=== PATIENT | female | born 1935 | race Caucasian/White ===

== ENCOUNTER 2016-05-20 11:00 | Observation (INO) | payer MEDICARE, OTHER ==
[2016-05-20 11:49] LABS: Hemoglobin 12.4 gm/dL (12.5-16.0); Mean Cell Volume 90.9 fl (78-100); Mean Corpuscular Hemoglobin 29.7 pg (27-31); Mean Corpuscular Hgb Conc 32.6 g/dl (32-36); Mean Platelet Volume 9.9 fl (6.0-9.5); Platelet Count 292 K/mm3 (150-450); Red Blood Count 4.18 M/mm3 (4.2-5.4); Red Cell Distribution Width 13.1 % (11.5-14.0); White Blood Count 11.1 K/mm3 (4.0-10.5)
[2016-05-20 11:52] LABS: Total Cells Counted 100
[2016-05-20 11:57] LABS: Anion Gap 14.6 mmol/L (6.8-13.8); BUN/Creatinine Ratio 9.6 (9.0-21.6); Calcium * 8.7 mg/dL (7.9-10.9); Carbon Dioxide 28.8 mmol/L (24-32.6); Estimated Creat Clear 28.4; Potassium 3.4 mmol/L (3.4-4.6)
--- NOTE | 2016-05-20 12:09 | ERNOTE ---
Medical Problem HPI - Narrative Date of Service: 05/20/16 - General Chief Complaint: Nausea/Vomiting Time Seen by Provider: 05/20/16 11:41 Source: patient Exam Limitations: no limitations - Immun/Allergies/Home Medications Immunizations: IMMUNIZATION HX Immunizations Up to Date Yes History of Influenza Vaccine Yes Hx Pneumococcal Vaccination Yes Allergies/Adverse Reactions: Allergies meperidine HCl [From Demerol] Adverse Reaction (Verified 05/20/16 11:20) soap Adverse Reaction (Verified 05/20/16 11:20) ivory soap Home Medications: HOME MEDICATIONS Acetaminophen [Tylenol] 500 mg PO HS 04/07/16 [Last Taken Unknown] Acetaminophen/Diphenhydramine [Tylenol Pm Ex-Strength Caplet] 1 each PO HS 04/07 [Last Taken Unknown] Clopidogrel Bisulfate [Plavix] 75 mg PO DAILY 04/07/16 [Last Taken Unknown] Enalapril Maleate [Vasotec] 20 mg PO DAILY 04/07/16 [Last Taken Unknown] Levothyroxine Sodium [Synthroid] 88 mcg PO DAILY 04/07/16 [Last Taken Unknown] Metoprolol Succinate 200 mg PO DAILY 04/07/16 [Last Taken Unknown] amLODIPine BESYLATE [Norvasc] 5 mg PO DAILY #30 tablet 04/10/16 [Last Taken Unknown] Cephalexin [Keflex] 500 mg PO QID 05/20/16 [Last Taken Unknown] Gabapentin [Neurontin] 100 mg PO TID 05/20/16 [Last Taken Unknown] - History of Present History Narrative: Pt. comes in with c/o vomiting intermittently for a week. Pt. also has had sore throat, rhinorrhea, cough, and has been on abx for cellulitis in her feet which is healing. Pt. denies any CP, SOB, but does state that she is fatigued, with, malaise. Pt. denies any dysuria or diarrhea or abd pain. Pt. lives [facility]. Pt. is also on holter monitor for another week to determine why she is having arrythmia and how often according to daughter. Review of Systems - Review of Systems Constitutional: Present: fever, chills, fatigue, malaise. Absent: recent illness EYE: Present: no symptoms reported ENT: Present: no symptoms reported. Absent: ear pain, nose congestion, nasal drainage Respiratory: Present: cough. Absent: shortness of breath, orthopnea, wheezing Gastrointestinal/Abdominal: Present: nausea, vomiting. Absent: diarrhea Genitourinary: Present: no symptoms reported. Absent: hematuria Musculoskeletal: Present: no symptoms reported. Absent: back pain, neck pain, joint pain Skin: Present: no symptoms reported Neurological: Present: no symptoms reported. Absent: headache, dizziness/light- headedness, numbness, tingling All Other Systems: All systems neg except as marked - Patient's Past Medical History Patient History - Medical: Arthritis, Cataracts, Fibromyalgia, Glaucoma, Hypothyroidism Patient History - Cancer: Breast Patient History - Surgical Procedures: Cancer Surgery - Family History Brother Family History - Cardiac/Respiratory: Cardiac Arrest, Coronary Heart Disease - Social History Living Situations: senior living Alcohol Use: none Physical Exam - Physical Exam General Appearance: Present: wd/wn, alert, no apparent distress Eye Exam: Normal inspection: bilateral, PERRL: bilateral, EOMI: bilateral Ears, Nose, Throat: Present: normal ENT inspection, hearing grossly normal, normal pharynx Neck: Present: normal inspection, nontender. Absent: lymphadenopathy (R), lymphadenopathy (L) Respiratory: Present: no respiratory distress, no accessory muscle use, chest nontender, decreased breath sounds, crackles - throughout. Absent: wheezing Cardiovascular/Chest: Present: regular rate, rhythm, no murmur, normal peripheral pulses Gastrointestinal/Abdominal: Present: normal bowel sounds, nontender, nondistended, soft, no organomegaly Back Exam: Present: normal inspection, normal range of motion, no CVA tenderness Extremity Exam: Present: normal inspection, non-tender, pedal edema - trace l Neurological Exam: Present: alert, oriented, normal mood/affect, no motor/ sensory deficits Skin Exam: Present: warm/dry, pallor ED Progress - Date and Time Seen: Date and Time: 05/20/16 13:50 Pt. with elevated BNP which is new for her and appears clinically dehydrated so will need careful fluid monitorring. Also with Influenza in her am concerned for possible worsening of disease. Discussed with Dr Santana, who pt. lists as her PCP, and we will admit for observation and get echocardiogram and diurese slowly. 05/20/16 13:54 - Results and Orders Patient's Lab Results:: I have reviewed the patient's lab results. - Vital Signs Patient's Vital Signs:: I have reviewed the patient's vital signs. Vital Signs: Vital Signs 05/20/16 11:12 Temperature 38.5 C H Pulse Rate 82 Respiratory 18 Rate Blood Pressure 160/68 O2 Sat by Pulse 94 Oximetry - EKG EKG: unchanged from 04/26, other - SR c left axis deviation occ PAC - X-Ray X-Ray #1 X-Ray: chest Interpretation: Reviewed by me X-ray Comments: no focal CP process, hypoventilated lungs. - Progress/Reassessment Chief Complaint: Nausea/Vomiting Progress:: Unchanged Departure - Departure Clinical Impression: Influenza A, Dehydration CHF (congestive heart failure) Qualifiers: Congestive heart failure type: unspecified congestive heart failure type Congestive heart failure chronicity: acute Qualified Code(s): I50.9 - Heart failure, unspecified Disposition: [facility] Condition: Serious
[2016-05-20] MEDS ORDERED: ONDANSETRON HCL/PF 2 MG/ML VIAL ONE ×3 (12:12→13:28)
[2016-05-20] MEDS ORDERED: ONDANSETRON HCL/PF 2 MG/ML VIAL IV ONE (12:13)
[2016-05-20 12:23] LABS: Atypical (Reactive) Lymph 3 % (0-2); Band 6 % (0-2.0); Lymphocyte 7 % (20-51); Monocyte 7 % (0-9); Neutrophil 77 % (42-75); Neutrophil # 8.5 K/mm3 (1.3-6.0)
[2016-05-20 12:24] LABS: Dohle Bodies 1+; Platelet Estimate Normal (NORMAL)
[2016-05-20] MEDS ORDERED: ONDANSETRON 4 MG TAB.RAPDIS ONE (12:35)
[2016-05-20] MEDS ORDERED: ONDANSETRON 4 MG TAB.RAPDIS PO ONE (12:38)
[2016-05-20] MEDS ORDERED: NORMAL SALINE 1,000 ML IV ONE (12:41)
[2016-05-20] MEDS ORDERED: FUROSEMIDE 10 MG/ML VIAL IV ONE (13:46)
[2016-05-20] MEDS ORDERED: FUROSEMIDE 10 MG/ML VIAL ONE (14:03)
[2016-05-20] MEDS: OSELTAMIVIR PHOSPHATE 75 MG CAPSULE PO SCH (20:23)
--- NOTE | 2016-05-20 23:48 | HP ---
Chief Complaint - Chief Complaint Date of Service: 05/20/16 Time of Service: 17:05 Chief Complaint: Cough, shortness of breath, weakness History of Present Illness: Alyssa is an 81 yo female who is currently a resident at [facility] were she is skilled for strengthening following CVA. Over the past few days she has begun having cough, weakness, body aches, and fever. She reports she is unable to ambulate. Denies chest pain or shortness of breath. No GI symptoms. - Patient's Past Medical History Patient History - Medical: Arthritis, Cataracts, Fibromyalgia, Glaucoma, Hypothyroidism Patient History - Cardiac/Respiratory: CVA/Stroke Patient History - Cancer: Breast Patient History - Surgical Procedures: Cancer Surgery - Family History Brother Family History - Cardiac/Respiratory: Cardiac Arrest, Coronary Heart Disease - Social History Living Situations: half-way Smoking Status: Never smoker Have you smoked in the past 12 months: No Do you dip or chew tobacco: No Initiate information on Smoking Cessation: No Alcohol Use: none Drug Use: none Review Of Systems (GEN) - Review of Systems Generalized/Overall Review: Present: Weakness, Chills, Fever EENTM: Present: No Symptoms Reported Respiratory: Present: Cough, Shortness of Breath Cardiac: Absent: Chest Pain, Edema Abdominal: Absent: Nausea, Vomiting Genitourinary: Present: No Symptoms Reported Musculoskeletal: Present: No Symptoms Reported Neurological: Present: Weakness Skin: Present: No Symptoms Reported Allergies/Adverse Reactions: Allergies Allergy/AdvReac Type Severity Reaction Status Date / Time meperidine HCl [From Demerol] AdvReac Verified 05/20/16 15:16 soap AdvReac Verified 05/20/16 15:16 Home Medications: HOME MEDICATIONS Acetaminophen [Tylenol] 500 mg PO Q4H PRN 04/07/16 [Last Taken Unknown] Acetaminophen/Diphenhydramine [Tylenol Pm Ex-Strength Caplet] 1 each PO HS 04/07 [Last Taken 05/19/16 20:00] Clopidogrel Bisulfate [Plavix] 75 mg PO DAILY 04/07/16 [Last Taken 05/19/16 08: 00] Enalapril Maleate [Vasotec] 20 mg PO DAILY 04/07/16 [Last Taken 05/19/16 08:00] Levothyroxine Sodium [Synthroid] 88 mcg PO DAILY 04/07/16 [Last Taken 05/19/16 08:00] Metoprolol Succinate 200 mg PO DAILY 04/07/16 [Last Taken 05/19/16 08:00] amLODIPine BESYLATE [Norvasc] 5 mg PO DAILY #30 tablet 04/10/16 [Last Taken 12/26 08:00] Gabapentin [Neurontin] 100 mg PO TID@0800,1500,2000 05/20/16 [Last Taken 20:00] Pantoprazole Sodium [Protonix] 40 mg PO DAILY 05/20/16 [Last Taken 05/19/16 08: 00] Polyethylene Glycol 3350 [Miralax] 17 gm PO DAILY 05/20/16 [Last Taken 05/19/16 08:00] Rosuvastatin Calcium [Crestor] 10 mg PO HS 05/20/16 [Last Taken 05/19/16 20:00] Atorvastatin Calcium [Lipitor] 40 mg PO HS 06/01/16 [Last Taken Unknown] Clindamycin HCl [Cleocin HCl] 300 mg PO Q6H #40 capsule 06/01/16 [Last Taken Unknown] Exam - Exam Vital Signs: Vital Signs - Last Taken Temp 37.1 C 05/20/16 23:07 Pulse 75 05/20/16 23:07 Resp 18 05/20/16 23:07 BP 141/55 05/20/16 23:07 Pulse Ox 98 05/20/16 23:07 Constitutional: Present: Alert, Oriented x3, Cooperative, Looks Older than stated age Eye Exam: bilateral eye: normal inspection Respiratory: Present: lungs clear, normal breath sounds Cardiovascular/Chest: Present: regular rate, rhythm, no murmur Abdomen: Present: Normal bowel sounds, soft, nontender, nondistended Extremity: Present: normal inspection Skin Exam: Present: normal color, warm/dry, no cyanosis Diagnostic Studies: Laboratory Results WBC 11.1 K/mm3 (4.0-10.5) H 05/20/16 11:30 RBC 4.18 M/mm3 (4.2-5.4) L 05/20/16 11:30 Hgb 12.4 gm/dL (12.5-16.0) L 05/20/16 11:30 Hct 38.0 % (37.0-47.0) 05/20/16 11:30 MCV 90.9 fl (78-100) 05/20/16 11:30 MCH 29.7 pg (27-31) 05/20/16 11:30 MCHC 32.6 g/dl (32-36) 05/20/16 11:30 RDW 13.1 % (11.5-14.0) 05/20/16 11:30 Plt Count 292 K/mm3 (150-450) 05/20/16 11:30 MPV 9.9 fl (6.0-9.5) H 05/20/16 11:30 Neutrophils % (Manual) 77 % (42-75) H 05/20/16 11:30 Band Neuts % (Manual) 6 % (0-2.0) H 05/20/16 11:30 Lymphocytes % (Manual) 7 % (20-51) L 05/20/16 11:30 Monocytes % (Manual) 7 % (0-9) 05/20/16 11:30 Neutrophils # (Manual) 8.5 K/mm3 (1.3-6.0) H 05/20/16 11:30 Lymphocytes # (Manual) 0.8 k/mm3 (1.5-3.5) L 05/20/16 11:30 Monocytes # (Manual) 0.8 k/mm3 (0.0-1.0) 05/20/16 11:30 Atypic/Reactive Lymphs 3 % (0-2) H 05/20/16 11:30 Dohle Bodies 1+ 05/20/16 11:30 Platelet Estimate Normal (NORMAL) 05/20/16 11:30 Sodium 141 mmol/L (132-142) 05/20/16 11:30 Plasma Sodium 141 mmol/L (130-142) 05/20/16 11:30 Potassium 3.4 mmol/L (3.4-4.6) 05/20/16 11:30 Chloride 101 mmol/L (97-106) 05/20/16 11:30 Carbon Dioxide 28.8 mmol/L (24-32.6) 05/20/16 11:30 Anion Gap 14.6 mmol/L (6.8-13.8) H 05/20/16 11:30 BUN 13 mg/dL (3-23) 05/20/16 11:30 Creatinine 1.35 mg/dL (0.4-1.4) 05/20/16 11:30 Est GFR (Non-Af Amer) 40 mL/min (60-130) L 05/20/16 11:30 BUN/Creatinine Ratio 9.6 (9.0-21.6) 05/20/16 11:30 Random Glucose 116 mg/dL (70-110) H 05/20/16 11:30 Lactic Acid, Venous 1.2 mmol/L (0.4-2.0) 05/20/16 11:30 Calcium 8.7 mg/dL (7.9-10.9) 05/20/16 11:30 B-Natriuretic Peptide 1866 pg/mL (5-550) H 05/20/16 11:30 Influenza Type A Ag Positive (NEGATIVE) H 05/20/16 11:38 Influenza Type B Ag Negative (NEGATIVE) 05/20/16 11:38 Assessment/Plan - Assessment/Plan (1) Influenza A Assessment: Patient admitted to observation for influenza A. Hemodynamically stable, however due to recent CVA, weakness, and age she is at high risk for mortality with influenza. Will treat with IVF and tamiflu. Patient is a resident at [facility], which is reportedly not currently accepting any patients due to Influenza outbreak at their facility. Problem: Acute (2) Vertebral artery stenosis with cerebral infarction Problem: Acute (3) Weakness following cerebrovascular accident (CVA) Problem: Acute
[2016-05-20] MEDS ORDERED: ACETAMINOPHEN 500 MG TABLET PO PRN (23:58)
[2016-05-21] MEDS: GABAPENTIN 100 MG CAPSULE PO SCH ×3 (07:30→20:32)
[2016-05-21] MEDS: LEVOTHYROXINE SODIUM 88 MCG TABLET PO SCH (07:30)
[2016-05-21] MEDS: PANTOPRAZOLE SODIUM 40 MG TABLET.EC PO SCH (07:30)
[2016-05-21] MEDS: POLYETHYLENE GLYCOL 3350 119 GM BTL PO SCH (08:56)
[2016-05-21] MEDS: amLODIPine BESYLATE 5 MG TABLET PO SCH (08:57)
[2016-05-21] MEDS: CLOPIDOGREL BISULFATE 75 MG TABLET PO SCH (08:57)
[2016-05-21] MEDS: METOPROLOL SUCCINATE 100 MG TABLET.SA PO SCH (08:57)
[2016-05-21] MEDS: ENALAPRIL MALEATE 20 MG TABLET PO SCH (08:57)
[2016-05-21] MEDS: OSELTAMIVIR PHOSPHATE 75 MG CAPSULE PO SCH ×2 (08:57→20:33)
[2016-05-21] MEDS ORDERED: METOPROLOL SUCCINATE 200 MG TABLET.SA PO SCH (09:00)
[2016-05-21 09:20] LABS: Hematocrit 37.9 % (37.0-47.0); Mean Cell Volume 91.1 fl (78-100); Mean Corpuscular Hemoglobin 28.8 pg (27-31); Mean Corpuscular Hgb Conc 31.7 g/dl (32-36); Mean Platelet Volume 10.1 fl (6.0-9.5); Platelet Count 249 K/mm3 (150-450); Red Blood Count 4.16 M/mm3 (4.2-5.4); Red Cell Distribution Width 13.2 % (11.5-14.0); White Blood Count 7.4 K/mm3 (4.0-10.5)
[2016-05-21 09:34] LABS: Albumin * 2.8 gm/dl (3.4-5.0); Anion Gap 14.1 mmol/L (6.8-13.8); BUN/Creatinine Ratio 11.2 (9.0-21.6); Bilirubin, Total 0.6 mg/dL (0.0-1.1); Ca. Corrected For Albumin 8.7 mg/dL (8.4-10.2); Calcium * 8.1 mg/dL (7.9-10.9); Carbon Dioxide 28.8 mmol/L (24-32.6); Potassium 2.9 mmol/L (3.4-4.6); Total Cells Counted 100; Total Protein 7.2 gm/dL (6.2-8.2)
[2016-05-21 10:16] LABS: Atypical (Reactive) Lymph 4 % (0-2); Band 4 % (0-2.0); Eosinophil 1 % (0-3); Lymphocyte 20 % (20-51); Monocyte 3 % (0-9); Neutrophil 68 % (42-75); Platelet Estimate Normal (NORMAL); RBC Morphology Normal (NORMAL)
[2016-05-21] MEDS: POTASSIUM CHLORIDE 20 MEQ TABLET.SA PO SCH (18:07)
[2016-05-21] MEDS: diphenhydrAMINE HCL 25 MG CAPSULE PO SCH (20:32)
[2016-05-21] MEDS: ACETAMINOPHEN 500 MG TABLET PO SCH (20:33)
[2016-05-21] MEDS: ROSUVASTATIN CALCIUM 10 MG TABLET PO SCH (20:33)
--- NOTE | 2016-05-21 23:44 | PN ---
Subjective - Date and Time Seen Date: 05/21/16 Time: 12:45 Subjective Narrative: Patient feeling better, but remains weaker than prior and still short of breath at times. [facility] remains no accepting patients due to Influenza outbreak. Objective - Vitals Vitals: Last Vital Signs Temp 36.6 C 05/21/16 23:12 Pulse 73 05/21/16 23:12 Resp 16 05/21/16 23:12 BP 139/54 05/21/16 23:12 Pulse Ox 99 05/21/16 23:12 - Abnormal Lab Findings Abnormal Lab Findings: Abnormal Lab Results 05/21/16 05/21/16 Range/Units 09:00 09:00 RBC 4.16 L (4.2-5.4) M/mm3 Hgb 12.0 L (12.5-16.0) gm/dL MCHC 31.7 L (32-36) g/dl MPV 10.1 H (6.0-9.5) fl Band Neuts % (Manual) 4 H (0-2.0) % Atypic/Reactive Lymphs 4 H (0-2) % Potassium 2.9 L (3.4-4.6) mmol/L Anion Gap 14.1 H (6.8-13.8) mmol/L Creatinine 1.43 H (0.4-1.4) mg/dL Est GFR (Non-Af Amer) 37 L (60-130) mL/min Random Glucose 200 H D (70-110) mg/dL Albumin 2.8 L (3.4-5.0) gm/dl - Exam Constitutional: Present: Alert, Oriented x3, Cooperative ENT Exam: Present: hearing grossly normal Respiratory: Present: lungs clear, normal breath sounds Cardiovascular/Chest: Present: regular rate, rhythm, no murmur Abdomen: Present: Normal bowel sounds, soft, nontender, nondistended Assessment/Plan - Problems/Diagnosis (1) Influenza A Problem: Acute Narrative: Continue IVF and Tamiflu. Starting to eat better and regain strength. Too frail to return to [facility] at this time.
[2016-05-22] MEDS: LEVOTHYROXINE SODIUM 88 MCG TABLET PO SCH (07:27)
[2016-05-22] MEDS: GABAPENTIN 100 MG CAPSULE PO SCH ×3 (07:27→21:09)
[2016-05-22] MEDS: PANTOPRAZOLE SODIUM 40 MG TABLET.EC PO SCH (07:27)
[2016-05-22 10:36] LABS: Hematocrit 40.7 % (37.0-47.0); Hemoglobin 12.4 gm/dL (12.5-16.0); Mean Cell Volume 98.1 fl (78-100); Mean Corpuscular Hemoglobin 29.9 pg (27-31); Mean Corpuscular Hgb Conc 30.5 g/dl (32-36); Mean Platelet Volume 10.7 fl (6.0-9.5); Platelet Count 203 K/mm3 (150-450); Red Blood Count 4.15 M/mm3 (4.2-5.4); Red Cell Distribution Width 13.3 % (11.5-14.0); White Blood Count 6.4 K/mm3 (4.0-10.5)
[2016-05-22] MEDS: METOPROLOL SUCCINATE 100 MG TABLET.SA PO SCH (10:36)
[2016-05-22] MEDS: POTASSIUM CHLORIDE 20 MEQ TABLET.SA PO SCH ×2 (10:36→16:22)
[2016-05-22] MEDS: OSELTAMIVIR PHOSPHATE 75 MG CAPSULE PO SCH ×2 (10:36→21:11)
[2016-05-22] MEDS: amLODIPine BESYLATE 5 MG TABLET PO SCH (10:36)
[2016-05-22] MEDS: CLOPIDOGREL BISULFATE 75 MG TABLET PO SCH (10:36)
[2016-05-22 10:37] LABS: Total Cells Counted 100
[2016-05-22] MEDS: POLYETHYLENE GLYCOL 3350 119 GM BTL PO SCH (10:37)
[2016-05-22] MEDS: ENALAPRIL MALEATE 20 MG TABLET PO SCH (10:37)
[2016-05-22 10:49] LABS: Albumin * 2.5 gm/dl (3.4-5.0); Anion Gap 13.6 mmol/L (6.8-13.8); BUN/Creatinine Ratio 12.8 (9.0-21.6); Bilirubin, Total 0.4 mg/dL (0.0-1.1); Ca. Corrected For Albumin 9.1 mg/dL (8.4-10.2); Calcium * 8.2 mg/dL (7.9-10.9); Carbon Dioxide 25.3 mmol/L (24-32.6); Potassium 3.9 mmol/L (3.4-4.6); Total Protein 6.9 gm/dL (6.2-8.2)
[2016-05-22 11:08] LABS: Band 1 % (0-2.0); Basophil 1 % (0-1); Eosinophil 3 % (0-3); Immature Granulocyte 1 (0-1); Lymphocyte 35 % (20-51); Monocyte 2 % (0-9); Neutrophil 57 % (42-75); Neutrophil # 3.6 K/mm3 (1.3-6.0); Platelet Estimate Normal (NORMAL); RBC Morphology Normal (NORMAL)
[2016-05-22] MEDS: ROSUVASTATIN CALCIUM 10 MG TABLET PO SCH (21:10)
[2016-05-22] MEDS: diphenhydrAMINE HCL 25 MG CAPSULE PO SCH (21:12)
[2016-05-22] MEDS: ACETAMINOPHEN 500 MG TABLET PO SCH (21:12)
--- NOTE | 2016-05-22 23:34 | PN ---
Subjective - Date and Time Seen Date: 05/22/16 Time: 14:45 Subjective Narrative: Feeling better, did better eating today and strength is improved. No fevers. Objective - Vitals Vitals: Last Vital Signs Temp 36.6 C 05/22/16 23:17 Pulse 73 05/22/16 23:17 Resp 16 05/22/16 23:17 BP 147/64 05/22/16 23:17 Pulse Ox 94 05/22/16 23:17 - Abnormal Lab Findings Abnormal Lab Findings: Abnormal Lab Results 05/22/16 05/22/16 Range/Units 10:25 10:25 RBC 4.15 L (4.2-5.4) M/mm3 Hgb 12.4 L (12.5-16.0) gm/dL MCHC 30.5 L (32-36) g/dl MPV 10.7 H (6.0-9.5) fl Est GFR (Non-Af Amer) 44 L (60-130) mL/min Random Glucose 143 H (70-110) mg/dL Albumin 2.5 L (3.4-5.0) gm/dl - Exam Constitutional: Present: Alert, Oriented x3, Cooperative ENT Exam: Present: hearing grossly normal Respiratory: Present: lungs clear, normal breath sounds Cardiovascular/Chest: Present: regular rate, rhythm, no murmur Abdomen: Present: Normal bowel sounds, soft, nontender, nondistended Assessment/Plan - Problems/Diagnosis (1) Influenza A Problem: Acute Narrative: Improving appetite and strength. If continues to improve will plan to discharge back to [facility] tomorrow.
[2016-05-23] MEDS: PANTOPRAZOLE SODIUM 40 MG TABLET.EC PO SCH (07:10)
[2016-05-23] MEDS: GABAPENTIN 100 MG CAPSULE PO SCH (07:11)
[2016-05-23] MEDS: LEVOTHYROXINE SODIUM 88 MCG TABLET PO SCH (07:11)
[2016-05-23] MEDS: POLYETHYLENE GLYCOL 3350 119 GM BTL PO SCH (08:32)
[2016-05-23] MEDS: OSELTAMIVIR PHOSPHATE 75 MG CAPSULE PO SCH (08:32)
[2016-05-23] MEDS: amLODIPine BESYLATE 5 MG TABLET PO SCH (08:32)
[2016-05-23] MEDS: METOPROLOL SUCCINATE 100 MG TABLET.SA PO SCH (08:32)
[2016-05-23] MEDS: POTASSIUM CHLORIDE 20 MEQ TABLET.SA PO SCH (08:32)
[2016-05-23] MEDS: CLOPIDOGREL BISULFATE 75 MG TABLET PO SCH (08:32)
[2016-05-23] MEDS: ENALAPRIL MALEATE 20 MG TABLET PO SCH (08:33)
[2016-05-23 10:48] VITALS: BP 144/61
--- NOTE | 2016-05-23 11:58 | DS ---
(1) Influenza A Diagnosis(s): Alyssa is an 81 yo female that was admitted for acute influenza A with weakness that worsened from her already weakened state from CVA. Due to recent CVA, weakness, and age she was at increased risk for mortality from influenza A as she had poor activity and poor nutritional intake. She was treated with IVF and tamiflu and worked on her strength and appetite to gradually improve until she was able to return to [facility] to continue therapies. Problem: Acute (2) Weakness following cerebrovascular accident (CVA) Problem: Acute Procedures Performed: none Discharge Disposition: [facility] Disposition: [facility] Condition: Fair Discharge Activity: Activity as tolerated Discharge Diet: General/regular food Discharge Level of Care:: SNF - Detention Referrals: Elie Santana DO [Primary Care Provider] - Problem Oriented Discharge Instructions to Patient/Family: Influenza, Adult, [id number] Complete Home Medications List: Complete Home Medication List: Acetaminophen [Tylenol] 500 mg PO Q4H PRN 04/07/16 Acetaminophen/Diphenhydramine [Tylenol Pm Ex-Strength Caplet] 1 each PO HS 04/07 Clopidogrel Bisulfate [Plavix] 75 mg PO DAILY 04/07/16 Enalapril Maleate [Vasotec] 20 mg PO DAILY 04/07/16 Levothyroxine Sodium [Synthroid] 88 mcg PO DAILY 04/07/16 Metoprolol Succinate 200 mg PO DAILY 04/07/16 amLODIPine BESYLATE [Norvasc] 5 mg PO DAILY #30 tablet 04/10/16 Gabapentin [Neurontin] 100 mg PO TID@0800,1500,2000 05/20/16 Pantoprazole Sodium [Protonix] 40 mg PO DAILY 05/20/16 Polyethylene Glycol 3350 [Miralax] 17 gm PO DAILY 05/20/16 Rosuvastatin Calcium [Crestor] 10 mg PO HS 05/20/16 Atorvastatin Calcium [Lipitor] 40 mg PO HS 06/01/16 Clindamycin HCl [Cleocin HCl] 300 mg PO Q6H #40 capsule 06/01/16
== END 2016-05-23 13:20 ==
LOC: ER 11:00 → MS 14:04
PROVIDERS: ADMIT Family Medicine; ATTEND Family Medicine
DX: J09.X2 Influenza due to identified novel influenza A virus with other respiratory manifestations (principal); I69.359 Hemiplegia and hemiparesis following cerebral infarction affecting unspecified side; E03.9 Hypothyroidism, unspecified; E86.0 Dehydration; I50.9 Heart failure, unspecified
CPT/HCPCS: 36415; 71020; 80048; 80053; 83605; 83880; 85007; 85025; 87040; 87081; 87400; 93005; 96361; 96374; 96375; 99283; G0378

== ENCOUNTER 2016-06-01 10:10 | Emergency (ER) | payer MEDICARE, OTHER ==
[2016-06-01 10:22] VITALS: BP 155/67
--- NOTE | 2016-06-01 10:33 | ERNOTE ---
Upper Extremity HPI - Narrative Date of Service: 06/01/16 - General Extremities Pain Location: elbow: right Time Seen by Provider: 06/01/16 10:11 Source: patient Exam Limitations: no limitations - Immun/Allergies/Home Medications Immunizations: IMMUNIZATION HX Immunizations Up to Date Yes History of Influenza Vaccine Yes Hx Pneumococcal Vaccination Yes Allergies/Adverse Reactions: Allergies Allergy/AdvReac Type Severity Reaction Status Date / Time meperidine HCl [From Demerol] AdvReac Verified 05/20/16 15:16 soap AdvReac Verified 05/20/16 15:16 Home Medications: HOME MEDICATIONS Acetaminophen [Tylenol] 500 mg PO Q4H PRN 04/07/16 [Last Taken Unknown] Acetaminophen/Diphenhydramine [Tylenol Pm Ex-Strength Caplet] 1 each PO HS 04/07 [Last Taken 05/19/16 20:00] Clopidogrel Bisulfate [Plavix] 75 mg PO DAILY 04/07/16 [Last Taken 05/19/16 08: 00] Enalapril Maleate [Vasotec] 20 mg PO DAILY 04/07/16 [Last Taken 05/19/16 08:00] Levothyroxine Sodium [Synthroid] 88 mcg PO DAILY 04/07/16 [Last Taken 05/19/16 08:00] Metoprolol Succinate 200 mg PO DAILY 04/07/16 [Last Taken 05/19/16 08:00] amLODIPine BESYLATE [Norvasc] 5 mg PO DAILY #30 tablet 04/10/16 [Last Taken 12/26 08:00] Gabapentin [Neurontin] 100 mg PO TID@0800,1500,2000 05/20/16 [Last Taken 20:00] Pantoprazole Sodium [Protonix] 40 mg PO DAILY 05/20/16 [Last Taken 05/19/16 08: 00] Polyethylene Glycol 3350 [Miralax] 17 gm PO DAILY 05/20/16 [Last Taken 05/19/16 08:00] Rosuvastatin Calcium [Crestor] 10 mg PO HS 05/20/16 [Last Taken 05/19/16 20:00] Atorvastatin Calcium [Lipitor] 40 mg PO HS 06/01/16 [Last Taken Unknown] Clindamycin HCl [Cleocin HCl] 300 mg PO Q6H #40 capsule 06/01/16 [Last Taken Unknown] - History of Present Illness Narrative: Pt. comes in with c/o R elbow pain, redness, and swelling for 2-3 days. Pt. denies any fevers, increased weakness, SOB, CP, numbness or tingling. Pt. denies any prehospital treatment, alleviating factors or aggravating factors. Pt. states that her nurse called her PCP to request medication for gout and was referred to the ED. Review of Systems - Review of Systems Constitutional: Present: no symptoms reported. Absent: recent illness, fever, chills, weakness, fatigue, malaise EYE: Present: no symptoms reported ENT: Present: no symptoms reported Respiratory: Present: no symptoms reported. Absent: shortness of breath, cough , wheezing Cardiology: Present: no symptoms reported. Absent: chest pain, palpitations, edema Gastrointestinal/Abdominal: Present: no symptoms reported. Absent: nausea, vomiting, diarrhea Genitourinary: Present: no symptoms reported. Absent: frequency, pain, decreased urinary output Musculoskeletal: Present: joint pain - R elbow. Absent: back pain, neck pain Skin: Present: lesions - callus L second volar toe, change in color - redness R elbow and L second toe. Absent: rash, dryness Neurological: Present: no symptoms reported. Absent: headache, dizziness/light- headedness, numbness, tingling All Other Systems: All systems neg except as marked - Patient's Past Medical History Patient History - Medical: Arthritis, Cataracts, Fibromyalgia, Glaucoma, Hypothyroidism Patient History - Cardiac/Respiratory: CVA/Stroke Patient History - Cancer: Breast Patient History - Surgical Procedures: Cancer Surgery - Family History Brother Family History - Cardiac/Respiratory: Cardiac Arrest, Coronary Heart Disease - Social History Living Situations: assisted living Alcohol Use: none Physical Exam - Physical Exam General Appearance: Present: wd/wn, alert, no apparent distress Eye Exam: Normal inspection: bilateral, PERRL: bilateral, EOMI: bilateral Ears, Nose, Throat: Present: normal ENT inspection, hearing grossly normal, normal pharynx Neck: Present: normal inspection, nontender. Absent: lymphadenopathy (R), lymphadenopathy (L) Respiratory: Present: no respiratory distress, normal breath sounds, no accessory muscle use, chest nontender, lungs clear Cardiovascular/Chest: Present: regular rate, rhythm, no murmur, normal peripheral pulses Gastrointestinal/Abdominal: Present: normal bowel sounds, nontender, nondistended, soft, no organomegaly Back Exam: Present: normal inspection, normal range of motion, no CVA tenderness , no vertebral tenderness Extremity Exam: Present: normal range of motion - with pain, joint redness - R elbow, joint swelling - R elbow Neurological Exam: Present: alert, oriented, normal mood/affect, pediatric clinical dietician II-XII nml as tested, normal cerebellar test, facial droop - normal for pt residual from CVA, motor weakness - R leg gross motor but 5/5 strength with ankle and fine motor Skin Exam: Present: normal color, warm/dry. Absent: pallor, skin rash ED Progress - Date and Time Seen: Date and Time: 06/01/16 11:07 This appears to be more relatest o bursitis and celoulitis will treat with clindamycina nd have pt. follow up with orthopedic surgeon for further evaluation. - Results and Orders Patient's Lab Results:: I have reviewed the patient's lab results. Results and Orders: mildly elevated WBC - Vital Signs Patient's Vital Signs:: I have reviewed the patient's vital signs. Departure Clinical Impression: Bursitis of elbow Qualifiers: Laterality: right Qualified Code(s): M70.31 - Other bursitis of elbow, right elbow - Departure Disposition: [facility] Condition: Good Instructions: Elbow Bursitis, [id number] Additional Instructions: Please follow up with Orthopedic provider for further follow up, make first available mappointment by calling office on Friday. Referrals: Yogi Garvey MD [Staff Physician] - Prescriptions: Clindamycin HCl [Cleocin HCl] 300 mg PO Q6H #40 capsule
[2016-06-01 10:36] LABS: Hematocrit 34.2 % (37.0-47.0); Mean Corpuscular Hemoglobin 28.9 pg (27-31); Mean Corpuscular Hgb Conc 32.2 g/dl (32-36); Mean Platelet Volume 9.3 fl (6.0-9.5); Neutrophil # 8.8 K/mm3 (1.3-6.0); Neutrophil % 69.4 % (42-75.0); Platelet Count 324 K/mm3 (150-450); Red Cell Distribution Width 13.1 % (11.5-14.0); White Blood Count 12.7 K/mm3 (4.0-10.5)
[2016-06-01 10:49] LABS: Albumin * 2.7 gm/dl (3.4-5.0); Anion Gap 13.7 mmol/L (6.8-13.8); BUN/Creatinine Ratio 10.4 (9.0-21.6); Bilirubin, Total 0.8 mg/dL (0.0-1.1); Calcium * 9.3 mg/dL (7.9-10.9); Carbon Dioxide 28.7 mmol/L (24-32.6); Potassium 3.4 mmol/L (3.4-4.6); Total Protein 7.9 gm/dL (6.2-8.2); Uric Acid 5.2 mg/dL (2.6-7.2)
== END 2016-06-01 11:58 ==
LOC: ER 10:10
DX: M70.31 Other bursitis of elbow, right elbow (principal); E03.9 Hypothyroidism, unspecified; I63.9 Cerebral infarction, unspecified; Z85.3 Personal history of malignant neoplasm of breast